=== PATIENT | male | born 1960 | race African-American/Black ===

== ENCOUNTER → 2019-11-14 | Outpatient (CLI) | payer OTHER ==
[~2019-11-14] MED LIST: REGADENOSON 0.4 MG/5 ML SYRINGE IV ONE
--- NOTE | 2019-11-14 12:53 | EST ---
EXERCISE STRESS AGE: 59 SEX: M HT: 70" WT: 190 PROTOCOL: Lexiscan Cardiolite Stress Test HEART RATE REST: 63 BLOOD PRESSURE REST: 134/89 MAXIMUM HEART RATE ACHIEVED: 100 MAXIMUM BLOOD PRESSURE: 142/70 INDICATIONS: Chest pain. CLINICAL INFORMATION: Baseline EKG shows sinus rhythm, normal axis, normal intervals. The patient was given intravenous Lexiscan as per protocol. Did not have chest pain or diagnostic ST-segment depression. CONCLUSION: 1. Negative stress test by EKG criteria. 2. Cardiolite portion of the stress test will be reported separately. MMODL / IJN: [id number] /
--- NOTE | 2019-11-14 13:47 | NM ---
EXAMINATION TYPE: NM stress lexiscan cardiolite DATE OF EXAM: 11/14/2019 COMPARISON: NONE HISTORY: Angina pectoris TECHNIQUE: After the intravenous administration of 10.7 mCi Tc 99m Sestamibi - Cardiolite resting SP ECT images acquired 45 minutes post injection. The patient received 0.4mg Lexiscan, 26.5 mCi Tc 99m Sestamibi - Stress images obtained [address] injection FINDINGS: Review of stress and rest SPECT images demonstrates no distinct perfusion abnormality. Gated analysi s shows normal wall motion with an estimated left ventricular ejection fraction of 53 %. TID is withi n normal limits calculated at 1.03 IMPRESSION: No scintigraphic evidence for reversible ischemia.
== END | disposition home or self-care (01) ==
LOC: RADNMMAIN 09:01
PROVIDERS: ATTEND Physician Assistant
DX: I20.9 Angina pectoris, unspecified (principal)
CPT/HCPCS: 93017; 78452; A9500; J2785

== ENCOUNTER 2020-02-20 09:06 | Day surgery (SDC) | payer OTHER ==
[2020-02-18 12:25] VITALS: BMI 27.2
[~2020-02-20 09:06] MED LIST changes: +LACTATED RINGERS 1,000 ML IV SCH; -REGADENOSON 0.4 MG/5 ML SYRINGE IV ONE
[2020-02-20 09:41] VITALS: TEMP 97.8
[2020-02-20] MEDS ORDERED: LIDOCAINE 1% (10MG/ML) FOR IV START INTRADERMA ONE (09:41)
[2020-02-20] MEDS ORDERED: LACTATED RINGERS 1,000 ML IV ONE (09:41)
[2020-02-20] MEDS ORDERED: LIDOCAINE 1% INJ 10MG/ML (20 ML MDV) ONE (10:05)
[2020-02-20] MEDS ORDERED: PROPOFOL 10 MG/ML 20 ML VIAL IV ONE (10:05)
--- NOTE | 2020-02-20 10:07 | P.GSHP ---
History of Present Illness H&P Date: 02/20/20 Chief Complaint: Screening colonoscopy This a 59-year-old male presents today for screening colonoscopy. Patient denies any significant GI complaints. Colonoscopies over 10 years ago. Past Medical History Past Medical History: No Reported History History of Any Multi-Drug Resistant Organisms: None Reported Past Surgical History: Hernia Repair, Orthopedic Surgery Additional Past Surgical History / Comment(s): bilat foot sx x 4. colonoscopy Past Anesthesia/Blood Transfusion Reactions: No Reported Reaction Smoking Status: Never smoker - Past Family History Mother Family Medical History: Cancer Additional Family Medical History / Comment(s): BREAST AND COLON. GRANDMOTHER ALSO HAD BREAST AND COLON CANCER Medications and Allergies Home Medications Medication Instructions Recorded Confirmed Type lamoTRIgine [LaMICtal] 200 mg PO DAILY 02/18/20 02/18/20 History Allergies Allergy/AdvReac Type Severity Reaction Status Date / Time No Known Allergies Allergy Verified 02/18/20 12:21 Surgical - Exam Vital Signs Temp Pulse Resp BP Pulse Ox 97.8 F 78 18 131/73 100 02/20/20 09:40 02/20/20 09:40 02/20/20 09:40 02/20/20 09:40 02/20/20 09:40 - General well developed, well nourished, no distress - Eyes PERRL - ENT normal pinna - Neck no masses - Respiratory normal expansion - Cardiovascular Rhythm: regular - Abdomen Abdomen: soft, non tender Assessment and Plan Assessment: We'll perform screening colonoscopy.
--- NOTE | 2020-02-20 10:18 | P.OP ---
Date of Procedure: 02/20/20 Preoperative Diagnosis: Screening colonoscopy Postoperative Diagnosis: Normal colon Procedure(s) Performed: Colonoscopy Anesthesia: MAC Surgeon: Severo Soriano Pathology: none sent Condition: stable Disposition: PACU Description of Procedure: PROCEDURE: The patient was placed on the endoscopy table in the lateral position. Digital rectal examination was performed which revealed no abnormalities. The prostate was symmetrical without nodules. Flexible colonoscope was then placed in the patient's anus and passed throughout the entire colon. The ileocecal valve was visualized. The cecum, ascending, transverse, descending and sigmoid colon were normal. The rectum was normal as well. There were no masses, polyps or diverticula noted in the entire colon. SUMMARY OF FINDINGS: Normal colonoscopy.
[2020-02-20 10:40] VITALS: BP 135/90; PULSE 55; RESP 17
== END 2020-02-20 11:08 | disposition home or self-care (01) ==
LOC: ORWHC2ENDO 09:06
PROVIDERS: ATTEND Surgery
DX: Z12.11 Encounter for screening for malignant neoplasm of colon (principal); Z80.0 Family history of malignant neoplasm of digestive organs; F31.9 Bipolar disorder, unspecified; Z79.899 Other long term (current) drug therapy; Z98.890 Other specified postprocedural states; Z80.3 Family history of malignant neoplasm of breast
CPT/HCPCS: G0105; J2001; J2704

== ENCOUNTER → 2023-10-11 | Outpatient (CLI) | payer MEDICARE ==
--- NOTE | 2023-10-11 11:21 | CA ---
Exercise Stress Test Report Name: Ned Carter Exam Date: 10/11/2023 09:10 Exam Location: [facility] Stress Ht (in): 70 Wt (lb): 190 BSA: 2.04 Ordering Phys: Christie Torres DO Referring Phys: Rosie Irene PAC Technologist: Minesh Lazo Age: 63 Gender: M : 1960 Procedure CPT: Indications: I20.9 Angina ICD-10 Codes: Patient History: Medications: LAMICTIL Meds past 24 hrs: Pretest Chest Pain: STRESS TEST Luke Protocol Exercise Duration (min:sec): 07:[address] Depressions (mm): Angina Score: Ladd Score: Resting HR (bpm): 83 Peak HR (bpm): 141 Resting BP (mmHg): 140 / 77 Peak BP (mmHg): 170 / 79 MPHR: 155 Target HR: 132 % MPHR: 91 METS: 8.5 Total Dose: Peak Dose: Atropine: Double Product: 62294 BP Response: Stress Termination: MAX EXERTION/TARGET HR Stress Symptoms: CHEST TIGHTNESS Stress Summary: ECG ANALYSIS Resting ECG: Normal sinus rhythm, normal axis, heart rate 78 bpm Stress ECG: No significant ST-T wave changes that are diagnostic for ischemia by ST segment analysis. There were no ectopic beats or sustained arrhythmias during the stress test. CONCLUSIONS Fair exercise tolerance for patient's age achieving 8.5 METS Normal hemodynamic response to treadmill exercise Nonischemic ECG response to treadmill exercise Patient did and called her chest tightness at maximum stress. The symptoms resolved in recovery. Overall normal treadmill stress test Dr Alan Nixon (Electronically Signed) Final Date: 11 October 2023 11:19
== END | disposition home or self-care (01) ==
LOC: RADNMMAIN 08:47
PROVIDERS: ATTEND Family Medicine
DX: I20.9 Angina pectoris, unspecified (principal)
CPT/HCPCS: 93017